=== PATIENT | male | born 1970 | race Caucasian/White ===

== ENCOUNTER 2025-04-19 14:57 | Emergency (ER) | payer MEDICAID ==
[~2025-04-19] VITALS: Ht 182.9 cm; Wt 119.7 kg
[2025-04-19 15:08] VITALS: TEMP 98.3
[2025-04-19 15:52] LABS: PLATELET COUNT (AUTO) 190 K/uL (150-450); RED BLOOD CELL COUNT(AUTO) 4.28 MIL/uL (4.5-6.0); RED CELL DISTRIBUTION WIDTH 13.4 % (11.5-15.0); WHITE BLOOD COUNT (AUTO) 6.0 K/uL (4.3-11.0)
[2025-04-19 16:01] LABS: CALCIUM, SERUM 9.2 mg/dL (8.5-10.1); CREATININE 0.9 mg/dL (0.6-1.3); SODIUM SERUM 138 mmol/L (136-145); UREA NITROGEN, BLOOD 17 mg/dL (7-18)
[2025-04-19] MEDS: IBUPROFEN 400 MG TABLET PO ONE (16:10)
[2025-04-19 16:12] LABS: ASPARTATE AMINOTRANSFERASE 26 U/L (15-37); NT-PRO BNP 44 pg/mL (0-125); TOTAL PROTEIN, SERUM 6.6 g/dL (6.4-8.2)
[2025-04-19 17:45] VITALS: BP 124/72; O2SAT 99
== END 2025-04-19 17:25 | disposition home or self-care (01) ==
LOC: ER 15:00
DX: R07.9 Chest pain, unspecified (principal); I10 Essential (primary) hypertension
CPT/HCPCS: 36415; 71045-TC; 80048-TC; 80076-TC; 83880; 84484-TC; 85025-TC